=== PATIENT | female | born 1950 | race Caucasian/White ===

== ENCOUNTER → 2016-11-07 | Outpatient (CLI) | payer MEDICARE ==
--- NOTE | 2016-11-07 16:08 | BD ---
EXAMINATION TYPE: MG DEXA axial skeleton. DATE OF EXAM: 11/07/2016 11:52 AM CLINICAL HISTORY: 66-year-old female history of breast cancer, postmenopausal screening Height: 67 Weight: 235 FRAX RISK QUESTIONS: Alcohol (3 or more units per day): no Family History (Parent hip fracture): no Glucocorticoids (More than 3mos): no (Ex: prednisone, prednisolone, methylprednisolone, dexamethasone, and hydrocortisone). History of Fracture in Adulthood: possibly toe, a long time ago Secondary Osteoporosis: 1. Type 1 Diabetes: no 2. Hyperthyroidism: no 3. Menopause before 45: no 4. Malnutrition: no 5. Chronic liver disease: no Rheumatoid Arthritis: no Current Tobacco Use: not now RISK FACTORS HISTORY OF: Family History of Osteoporosis: possibly sister & mother Drink Alcohol: very very very rarely Active: yes Diet low in dairy products/other sources of calcium: at least one serving a day; but lactose intoler ant Postmenopausal woman: yes Take estrogen and/or progesterone medications: no Lost more than 2 inches in height since high school: no Frequent falls: no Poor Health: no Hyperparathyroidism: no Adrenal Insufficiency: no MEDICATIONS: Prednisone or other steroids: no Thyroid Medications: no Osteoporosis Medications: no Additional Medications: Vit D Additional History: Breast CA about 3 years ago; took Femara for a year or more EXAM MEASUREMENTS: Bone mineral densitometry was performed using the Qt Software System. Bone mineral density as measured about the Lumbar spine is: ----- L1-L4(G/cm2): 1.069 T Score Values are as follows: ----- L2: -1.5 ----- L3: -0.6 ----- L4: -0.1 ----- L1-L4: -0.9 Bone mineral density has: Decreased -6.1% since study of: 02/08/2014 Bone mineral density about the R hip (g/cm2): 0.798 Bone mineral density about the L hip (g/cm2): 0.896 T Score values are as follows: -----R Neck: -1.7 -----L Neck: -1.0 -----R Intertrochanter: -1.5 -----L Intertrochanter: -1.6 Bone mineral density has: Decreased -1.6% since study of: 02/08/2014 IMPRESSION: Osteopenia as indicated by T score values in the lumbar spine and both hips. There is slightly increased risk of fracture and the patient may be considered for treatment. Re-Screen 2 to 5 years. NOTE: T-SCORE=SD OF THE YOUNG ADULT MEAN.
== END | disposition home or self-care (01) ==
LOC: RADBDWWP 10:06
PROVIDERS: ATTEND Internal Medicine
DX: C50.411 Malignant neoplasm of upper-outer quadrant of right female breast (principal); M85.852 Other specified disorders of bone density and structure, left thigh; M85.851 Other specified disorders of bone density and structure, right thigh; M85.88 Other specified disorders of bone density and structure, other site; Z79.890 Hormone replacement therapy
CPT/HCPCS: 77080

== ENCOUNTER 2017-12-31 12:45 | Emergency (ER) | payer MEDICARE ==
[2017-12-31 12:57] VITALS: RESP 18
--- NOTE | 2017-12-31 13:40 | ED ---
General Adult HPI - General Chief complaint: Arrhythmia/Palpitations Stated complaint: Palpitations Time Seen by Provider: 12/31/17 13:08 Source: patient, RN notes reviewed Mode of arrival: ambulatory Limitations: no limitations - History of Present Illness Initial comments: Patient is a pleasant 67-year-old female presenting to the emergency Department with palpitations. Symptoms have been going on for weeks but worse the past few days. Patient feels like her heart is skipping. No chest pain. No dyspnea. No history of similar symptoms previously. No known arrhythmia history. - Related Data Home Medications Medication Instructions Recorded Confirmed Aspirin EC [Ecotrin Low Dose] 81 mg PO DAILY PRN 12/31/17 12/31/17 Cholecalciferol [Vitamin D3] 1,000 unit PO DAILY 12/31/17 12/31/17 Allergies Allergy/AdvReac Type Severity Reaction Status Date / Time Penicillins Allergy Anaphylaxis Verified 12/31/17 13:22 Review of Systems ROS Statement: Those systems with pertinent positive or pertinent negative responses have been documented in the HPI. ROS Other: All systems not noted in ROS Statement are negative. Constitutional: Denies: fever Eyes: Denies: eye discharge ENT: Denies: ear pain Respiratory: Denies: cough Cardiovascular: Reports: palpitations. Denies: chest pain Endocrine: Denies: fatigue Gastrointestinal: Denies: abdominal pain Genitourinary: Denies: dysuria Musculoskeletal: Denies: back pain Skin: Denies: rash Neurological: Denies: headache Past Medical History Additional Past Medical History / Comment(s): breast cancer 2014 History of Any Multi-Drug Resistant Organisms: None Reported Past Surgical History: Cholecystectomy Additional Past Surgical History / Comment(s): right breast lumpectomy and radiation Past Psychological History: No Psychological Hx Reported Smoking Status: Former smoker Past Alcohol Use History: None Reported Past Drug Use History: None Reported General Exam Limitations: no limitations General appearance: alert, in no apparent distress Head exam: Present: atraumatic Eye exam: Present: normal appearance, PERRL ENT exam: Present: normal oropharynx Neck exam: Present: normal inspection Respiratory exam: Present: normal lung sounds bilaterally Cardiovascular Exam: Present: regular rate, other (PVCs present with palpation of the pulse and on the monitor that does produce patient's symptoms) GI/Abdominal exam: Present: soft. Absent: tenderness Extremities exam: Present: normal inspection. Absent: pedal edema, calf tenderness Neurological exam: Present: alert Psychiatric exam: Present: normal affect, normal mood Skin exam: Present: normal color Course Vital Signs 12/31/17 12/31/17 12:52 14:13 Temperature 98 F Pulse Rate 77 65 Respiratory 18 18 Rate Blood Pressure 188/81 157/72 O2 Sat by Pulse 97 98 Oximetry EKG Findings - EKG Comments: EKG Findings:: Sinus rhythm 77. PVC present. PA 140. QRS 92. QT 382. QTC 432. Normal axis. Normal QRS. No acute ST change. Medical Decision Making - Medical Decision Making Patient reevaluated and resting comfortably in bed. symptoms have resolved. Patient and family updated on results and need for follow-up. - Lab Data Result diagrams: 12/31/17 13:18 12/31/17 13:18 Lab Results 12/31/17 12/31/17 12/31/17 Range/Units 13:18 13:18 13:18 WBC 7.3 (3.8-10.6) k/uL RBC 4.35 (3.80-5.40) m/uL Hgb 13.7 (11.4-16.0) gm/dL Hct 40.2 (34.0-46.0) % MCV 92.3 (80.0-100.0) fL MCH 31.5 (25.0-35.0) pg MCHC 34.1 (31.0-37.0) g/dL RDW 13.8 (11.5-15.5) % Plt Count 276 (150-450) k/uL Neutrophils % 72 % Lymphocytes % 18 % Monocytes % 6 % Eosinophils % 1 % Basophils % 1 % Neutrophils # 5.2 (1.3-7.7) k/uL Lymphocytes # 1.3 (1.0-4.8) k/uL Monocytes # 0.4 (0-1.0) k/uL Eosinophils # 0.1 (0-0.7) k/uL Basophils # 0.0 (0-0.2) k/uL PT 9.9 (9.0-12.0) sec INR 1.0 (<1.2) APTT 22.4 (22.0-30.0) sec Sodium 143 (137-145) mmol/L Potassium 4.2 (3.5-5.1) mmol/L Chloride 105 (98-107) mmol/L Carbon Dioxide 25 (22-30) mmol/L Anion Gap 13 mmol/L BUN 14 (7-17) mg/dL Creatinine 0.60 (0.52-1.04) mg/dL Est GFR (CKD-EPI)AfAm >90 (>60 ml/min/1.73 sqM) Est GFR (CKD-EPI)NonAf >90 (>60 ml/min/1.73 sqM) Glucose 94 (74-99) mg/dL Calcium 9.2 (8.4-10.2) mg/dL Magnesium 1.9 (1.6-2.3) mg/dL Total Bilirubin 0.3 (0.2-1.3) mg/dL AST 24 (14-36) U/L ALT 40 (9-52) U/L Alkaline Phosphatase 102 (38-126) U/L Total Creatine Kinase (30-135) U/L CK-MB (CK-2) (0.0-2.4) ng/mL CK-MB (CK-2) Rel Index Troponin I (0.000-0.034) ng/mL Total Protein 7.0 (6.3-8.2) g/dL Albumin 4.2 (3.5-5.0) g/dL TSH 1.950 (0.465-4.680) mIU/L Free T4 1.40 (0.78-2.19) ng/dL Free T3 pg/mL 3.8 (2.8-5.3) pg/ml 12/31/17 Range/Units 13:55 WBC (3.8-10.6) k/uL RBC (3.80-5.40) m/uL Hgb (11.4-16.0) gm/dL Hct (34.0-46.0) % MCV (80.0-100.0) fL MCH (25.0-35.0) pg MCHC (31.0-37.0) g/dL RDW (11.5-15.5) % Plt Count (150-450) k/uL Neutrophils % % Lymphocytes % % Monocytes % % Eosinophils % % Basophils % % Neutrophils # (1.3-7.7) k/uL Lymphocytes # (1.0-4.8) k/uL Monocytes # (0-1.0) k/uL Eosinophils # (0-0.7) k/uL Basophils # (0-0.2) k/uL PT (9.0-12.0) sec INR (<1.2) APTT (22.0-30.0) sec Sodium (137-145) mmol/L Potassium (3.5-5.1) mmol/L Chloride (98-107) mmol/L Carbon Dioxide (22-30) mmol/L Anion Gap mmol/L BUN (7-17) mg/dL Creatinine (0.52-1.04) mg/dL Est GFR (CKD-EPI)AfAm (>60 ml/min/1.73 sqM) Est GFR (CKD-EPI)NonAf (>60 ml/min/1.73 sqM) Glucose (74-99) mg/dL Calcium (8.4-10.2) mg/dL Magnesium (1.6-2.3) mg/dL Total Bilirubin (0.2-1.3) mg/dL AST (14-36) U/L ALT (9-52) U/L Alkaline Phosphatase (38-126) U/L Total Creatine Kinase 90 (30-135) U/L CK-MB (CK-2) 1.9 (0.0-2.4) ng/mL CK-MB (CK-2) Rel Index 2.1 Troponin I <0.012 (0.000-0.034) ng/mL Total Protein (6.3-8.2) g/dL Albumin (3.5-5.0) g/dL TSH (0.465-4.680) mIU/L Free T4 (0.78-2.19) ng/dL Free T3 pg/mL (2.8-5.3) pg/ml - Radiology Data Radiology results: image reviewed (Chest x-ray shows no acute process) Disposition Clinical Impression: Palpitations Disposition: HOME SELF-CARE Condition: Stable Instructions: Palpitations (ED) Additional Instructions: Please follow-up with your primary care physician in the next day or 2 for recheck. Consider having Holter monitor and echo done. Return for increased heart rate, chest pain, difficulty breathing, worsening or change in symptoms, or any other concerns. Is patient prescribed a controlled substance at d/c from ED?: No Referrals: Cate Amador MD [Primary Care Provider] - 1-2 days Time of Disposition: 15:32
--- NOTE | 2017-12-31 14:14 | XR ---
EXAMINATION TYPE: XR chest 2V DATE OF EXAM: 12/31/2017 COMPARISON: Prior chest x-ray 09/17/2013 HISTORY: Dysrhythmia TECHNIQUE: Frontal and lateral views of the chest are obtained. FINDINGS: There is no focal air space opacity, pleural effusion, or pneumothorax seen. The cardiac silhouette size is at the upper limits of normal although patient is rotated which may accentuate the appearance. There are overlying cardiac leads. Suspect surgical clips over the lower right chest. T he osseous structures are intact. IMPRESSION: No acute cardiopulmonary process. Additional findings above.
[2017-12-31 14:19] LABS: Basophils % (A) 1 %; Eosinophils # (A) 0.1 k/uL (0-0.7); Eosinophils % (A) 1 %; HCT 40.2 % (34.0-46.0); HGB 13.7 gm/dL (11.4-16.0); Lymphocytes # (A) 1.3 k/uL (1.0-4.8); Lymphocytes % (A) 18 %; MCH 31.5 pg (25.0-35.0); MCHC 34.1 g/dL (31.0-37.0); MCV 92.3 fL (80.0-100.0); Mean Platelet Volume 7.3; Monocytes # (A) 0.4 k/uL (0-1.0); Monocytes % (A) 6 %; Neutrophils # (A) 5.2 k/uL (1.3-7.7); Neutrophils % (A) 72 %; Platelet Count 276 k/uL (150-450); RBC 4.35 m/uL (3.80-5.40); RDW 13.8 % (11.5-15.5); WBC 7.3 k/uL (3.8-10.6)
[2017-12-31 14:27] LABS: ALT 40 U/L (9-52); AST 24 U/L (14-36); Albumin 4.2 g/dL (3.5-5.0); Alkaline Phosphatase 102 U/L (38-126); Anion Gap 13 mmol/L; Blood Urea Nitrogen 14 mg/dL (7-17); Calcium 9.2 mg/dL (8.4-10.2); Carbon Dioxide 25 mmol/L (22-30); Chloride 105 mmol/L (98-107); Glucose 94 mg/dL (74-99); Magnesium 1.9 mg/dL (1.6-2.3); Partial Thromboplastin Time 22.4 sec (22.0-30.0); Potassium 4.2 mmol/L (3.5-5.1); Prothrombin Time 9.9 sec (9.0-12.0); Sodium 143 mmol/L (137-145); Total Bilirubin 0.3 mg/dL (0.2-1.3)
[2017-12-31 14:52] LABS: Creatine Kinase 90 U/L (30-135)
[2017-12-31 15:04] LABS: Creatine Kinase MB 1.9 ng/mL (0.0-2.4); Troponin I <0.012 ng/mL (0.000-0.034)
[2017-12-31 16:07] VITALS: BP 149/68; PULSE 64; TEMP 97.8
== END 2017-12-31 16:06 | disposition home or self-care (01) ==
LOC: EC 12:45
DX: I49.3 Ventricular premature depolarization (principal); Z87.891 Personal history of nicotine dependence; Z79.899 Other long term (current) drug therapy; Z88.0 Allergy status to penicillin; Z85.3 Personal history of malignant neoplasm of breast; Z92.3 Personal history of irradiation; Z98.890 Other specified postprocedural states
CPT/HCPCS: 36415; 71046; 80053; 82550; 82553; 83735; 84439; 84443; 84481; 84484; 85025; 85610; 85730; 93005; 99285

== ENCOUNTER 2024-06-22 10:38 | Emergency (ER) | payer MEDICARE ==
--- NOTE | 2024-06-22 11:27 | ED ---
Skin/Abscess/FB HPI - General Chief complaint: Skin/Abscess/Foreign Body Stated complaint: Right breast abscess Time Seen by Provider: 06/22/24 10:58 Source: patient, RN notes reviewed Mode of arrival: ambulatory Limitations: no limitations - History of Present Illness Initial comments: 73-year-old female presenting to the ER with right breast abscess x 2 days. Describes an itchy, red, lump in the right lateral aspect of right breast with white purulence. States she had a lumpectomy in this location 10 years ago. She gets yearly mammograms, her next to scheduled next month. Denies fevers, chills, nausea, vomiting. - Related Data Home Medications Medication Instructions Recorded Confirmed Aspirin EC [Ecotrin Low Dose] 81 mg PO DAILY PRN 12/31/17 12/31/17 Cholecalciferol [Vitamin D3] 1,000 unit PO DAILY 12/31/17 12/31/17 Previous Rx's Medication Instructions Recorded Cephalexin [Keflex] 500 mg PO Q6HR 7 Days #28 cap 06/22/24 Sulfamethox-Tmp 800-160Mg [Bactrim 1 each PO Q12HR 7 Days #14 tab 06/22/24 Ds] Allergies Allergy/AdvReac Type Severity Reaction Status Date / Time fluorescein Allergy Itching Verified 06/22/24 10:55 [From Fluoracaine] Penicillins Allergy Anaphylaxis Verified 12/31/17 13:22 proparacaine Allergy Itching Verified 06/22/24 10:55 [From Fluoracaine] Review of Systems ROS Statement: Those systems with pertinent positive or pertinent negative responses have been documented in the HPI. ROS Other: All systems not noted in ROS Statement are negative. Past Medical History Additional Past Medical History / Comment(s): breast cancer 2014 History of Any Multi-Drug Resistant Organisms: None Reported Past Surgical History: Cholecystectomy Additional Past Surgical History / Comment(s): right breast lumpectomy and radiation Past Psychological History: No Psychological Hx Reported Smoking Status: Never smoker Past Alcohol Use History: None Reported Past Drug Use History: None Reported General Exam Limitations: no limitations General appearance: alert, in no apparent distress Head exam: Present: atraumatic, normocephalic, normal inspection ENT exam: Present: normal exam, mucous membranes moist Respiratory exam: Present: normal lung sounds bilaterally. Absent: respiratory distress, wheezes, rales, rhonchi, stridor Cardiovascular Exam: Present: regular rate, normal rhythm, normal heart sounds. Absent: systolic murmur, diastolic murmur, rubs, gallop, clicks Neurological exam: Present: alert, oriented X3 Psychiatric exam: Present: normal affect, normal mood Skin exam: Present: warm, dry, intact, normal color, other (3 x 3 cm erythematous, indurated mass with white purulence in the center present lateral aspect right breast) Course Vital Signs 06/22/24 10:50 Temperature 98.7 F Pulse Rate 72 Respiratory 18 Rate Blood Pressure 152/78 O2 Sat by Pulse 98 Oximetry Medical Decision Making - Medical Decision Making Was pt. sent in by a medical professional or institution (, PA, SECURITY SYSTEMS MANAGER, urgent care, hospital, or long term...) When possible be specific @ -No Did you speak to anyone other than the patient for history (EMS, parent, family, police, friend...)? What history was obtained from this source @ -No Did you review nursing and triage notes (agree or disagree)? Why? @ -I reviewed and agree with nursing and triage notes Were old charts reviewed (outside hosp., previous admission, EMS record, old EKG, old radiological studies, urgent care reports/EKG's, long term records)? Report findings @ -No old charts were reviewed Differential Diagnosis (chest pain, altered mental status, abdominal pain women, abdominal pain men, vaginal bleeding, weakness, fever, dyspnea, syncope, headache, dizziness, GI bleed, back pain, seizure, CVA, palpatations, mental health, musculoskeletal)? @ -Abscess, cellulitis, carcinoma EKG interpreted by me (3pts min.). @ -None X-rays interpreted by me (1pt min.). @ -None done CT interpreted by me (1pt min.). @ -None done U/S interpreted by me (1pt. min.). @ -Ultrasound right breast reveals a large 2.8 cm area of echogenicity at 8 and 10:00 with dense posterior shadowing seen to correspond to fat necrosis calcification noted on 07-23-2023 mammogram. No clear abscess/fluid collection What testing was considered but not performed or refused? (CT, X-rays, U/S, labs)? Why? @ -None What meds were considered but not given or refused? Why? @ -None Did you discuss the management of the patient with other professionals (professionals i.e. DrVivian, PA, SECURITY SYSTEMS MANAGER, lab, RT, psych nurse, 7th grade social studies teacher, television station manager, teacher, equal opportunity officer, caseworker protective services)? Give summary @ -No Was smoking cessation discussed for >3mins.? @ -No Was critical care preformed (if so, how long)? @ -No Were there social determinants of health that impacted care today? How? (Homelessness, low income, unemployed, alcoholism, drug addiction, transportation, low edu. Level, literacy, decrease access to med. care, [facility], rehab)? @ -No Was there de-escalation of care discussed even if they declined (Discuss DNR or withdrawal of care, Hospice)? DNR status @ -No What co-morbidities impacted this encounter? (DM, HTN, Smoking, COPD, CAD, Cancer, CVA, ARF, Chemo, Hep., AIDS, mental health diagnosis, sleep apnea, morbid obesity)? @ -None Was patient admitted / discharged? Hospital course, mention meds given and route, prescriptions, significant lab abnormalities, going to OR and other pertinent info. @ -Discharge. This is a 73-year-old female presenting with right breast abscess x 2 days. Patient had lumpectomy 10 years ago at same location. No systemic or red flag symptoms. Physical examination remarkable for indurated erythematous mass on right lateral breast with white purulent drainage. Ultrasound right breast reveals large 2.8 cm area of echogenicity at 8 and 10:00 with dense posterior shadowing seem to correspond to fat necrosis calcification noted 07-23-2023 mammogram, no clear abscess or fluid collection. Discussed results with patient. Will treat with antibiotics and advised close follow-up with [facility] surgeon. Appropriate return precautions and supportive care discussed. Case was discussed with my ED attending Dr. Potter. Undiagnosed new problem with uncertain prognosis? @ -No Drug Therapy requiring intensive monitoring for toxicity (Heparin, Nitro, Insulin, Cardizem)? @ -No Were any procedures done? @ -No Diagnosis/symptom? @ -Cellulitis right breast Acute, or Chronic, or Acute on Chronic? @ -Acute Uncomplicated (without systemic symptoms) or Complicated (systemic symptoms)? @ -Uncomplicated Side effects of treatment? @ -No Exacerbation, Progression, or Severe Exacerbation? @ -No Poses a threat to life or bodily function? How? (Chest pain, [place], [place], pneumonia, PE, COPD, DKA, ARF, appy, cholecystitis, CVA, Diverticulitis, Homicidal, Suicidal, threat to staff... and all critical care pts) @ -No Disposition Clinical Impression: Cellulitis of right breast Disposition: HOME SELF-CARE Condition: Stable Instructions (If sedation given, give patient instructions): Cellulitis (ED) Additional Instructions: Take Keflex and Bactrim as prescribed. Follow-up with breast surgeon as discussed. Please return to the Emergency Department if symptoms worsen or any other concerns. Prescriptions: Sulfamethox-Tmp 800-160Mg [Bactrim Ds] 1 each PO Q12HR 7 Days #14 tab Cephalexin [Keflex] 500 mg PO Q6HR 7 Days #28 cap Is patient prescribed a controlled substance at d/c from ED?: No Referrals: Cate Amador MD [Primary Care Provider] - 1-2 days Time of Disposition: 13:01
--- NOTE | 2024-06-22 12:38 | USB ---
Reason for Exam: Clinical finding. Patient History: Menarche at age 12. First Full-Term at age 21. Postmenopausal. Breast cancer, age 63. 09/22/2013, Bilateral Malignant Excisional Biopsy. 09/09/2013, Malignant Core Biopsy on the right side. Maternal cousin had breast cancer, age 50. Prior Study Comparison: 08/26/2013 Bilateral Diagnostic Mammogram, [facility]. 09/09/2013 Right Diagnostic Mammogram, [facility]. Findings: The lateral section of the breast of the right breast, the axilla of the right breast and the retroareolar of the right breast were scanned. Targeted ultrasound along the lateral aspect of the right breast 6:00 to 11:00 including scanning of the subareolar region and axilla. At the 9 and 10:00 position, 2 cm from the nipple, there is focal echogenicity with associated dense posterior shadowing measuring 2.8 x 2.7 x 2.8 cm. Though this corresponds to the site of patient's wound and drainage, we note a large area of fat necrosis calcification on the patient's outside 07/23/2023 mammogram. Overall Assessment: Incomplete: need additional imaging evaluation, BI-RAD 0 Management: Diagnostic Mammogram of both breasts. Large 2.8 cm area of echogenicity at 9 and 10:00 with dense posterior shadowing seems to correspond to fat necrosis calcification noted on the patient's outside 07/23/2023 mammogram. The manager sap notes a wound with drainage in this same location. Ultrasound does not identify any clear abscess/fluid collection. [facility], , 06/22/2024 12:35 PM. Electronically signed and approved by: Reba Castorena M.D. Radiologist
[2024-06-22 13:10] VITALS: BP 146/81; PULSE 65; RESP 16; TEMP 98.2
== END 2024-06-22 13:11 | disposition home or self-care (01) ==
LOC: EC 10:38
DX: N61.0 Mastitis without abscess (principal); Z88.0 Allergy status to penicillin; Z88.8 Allergy status to other drugs, medicaments and biological substances; Z88.1 Allergy status to other antibiotic agents; Z88.2 Allergy status to sulfonamides
CPT/HCPCS: 99283

== ENCOUNTER → 2024-07-10 | Outpatient (CLI) | payer MEDICARE ==
--- NOTE | 2024-07-10 11:51 | MM ---
Reason for Exam: Clinical finding. Last screening mammogram was performed 12 month(s) ago. Indicated Problems: Other indicated problem of the right side for 2 Month(s) : open wound with drainage. Patient History: Menarche at age 12. First Full-Term at age 21. Postmenopausal. Patient has history of breast feeding. Breast cancer, right, age 63. 09/22/2013, Bilateral Malignant Excisional Biopsy. 09/09/2013, Malignant Core Biopsy on the right side. Maternal cousin had breast cancer, age 50. Prior Study Comparison: 08/26/2013 Bilateral Diagnostic Mammogram, [facility]. 09/09/2013 Right Diagnostic Mammogram, [facility]. 07/12/2021 Bilateral Diagnostic Mammogram, [facility]. 07/18/2022 Bilateral Diagnostic Mammogram, [facility]. 07/23/2023 Bilateral Diagnostic Mammogram, [facility]. Tissue Density: There are scattered areas of fibroglandular density. Findings: Analyzed By CAD. The pattern is stable. There is a large coarse calcification or distortion within the right breast. Surgical clips from prior lumpectomy are present. Findings are stable from 07/23/2023. No suspicious groups of microcalcifications, spiculated or lobular masses, architectural distortion or other secondary signs of malignancy are mammographically apparent. Overall Assessment: Benign, BI-RAD 2 Management: Screening Mammogram of both breasts in 1 year. A negative mammogram report should not preclude additional follow up of suspicious palpable abnormalities. Patient should continue monthly self breast exam. A clinical breast exam by your physician is recommended on an annual basis and results should be correlated with mammographic findings. Note on Mary scores and lifetime risk: 1. A Mary score greater than 3% is considered moderate risk. If this is the case, consider specialist referral to assess eligibility for a risk reducing agent. 2. If overall lifetime risk for the development of breast cancer is 20% or higher, the patient may qualify for future screening with alternating mammogram and breast MRI. [facility], , 07/10/2024 11:47 AM. Electronically signed and approved by: Michael Moctezuma D.O. Radiologis
== END | disposition home or self-care (01) ==
LOC: RADMAMWWP 10:09
PROVIDERS: ATTEND Surgery
DX: N63.0 Unspecified lump in unspecified breast (principal); Z78.0 Asymptomatic menopausal state; Z85.3 Personal history of malignant neoplasm of breast; Z80.3 Family history of malignant neoplasm of breast; R92.323 Mammographic fibroglandular density, bilateral breasts
CPT/HCPCS: 77066; G0279; 77062

== ENCOUNTER → 2024-07-14 | Day surgery (SDC) | payer MEDICARE ==
--- NOTE | 2024-07-20 10:18 | MM ---
Reason for Exam: Post Procedure Mammogram. Last screening mammogram was performed less than 1 month ago. Patient History: Menarche at age 12. First Full-Term at age 21. Postmenopausal. Patient has history of breast feeding. Breast cancer, right, age 63. 09/22/2013, Bilateral Malignant Excisional Biopsy. 09/09/2013, Malignant Core Biopsy on the right side. Maternal cousin had breast cancer, age 50. Prior Study Comparison: 07/18/2022 Bilateral Diagnostic Mammogram, [facility]. 07/23/2023 Bilateral Diagnostic Mammogram, [facility]. 07/10/2024 Bilateral MG 3D diag mammo w/cad MELISSA, [facility]. Tissue Density: Right: There are scattered areas of fibroglandular density. Pathology Description: Location: 10 o'clock. Marker Left Behind. Needle Type: Celero Cores: 4 Gauge: 12 The procedure of ultrasound guided core biopsy was explained to the patient. Benefits, alternatives, and risks were discussed. An informed consent was then obtained. The patient was placed in supine positioning for imaging and for the procedure. The overlying skin was prepped and draped in usual sterile fashion. Lidocaine buffered with bicarbonate was used as anesthetic into the skin and subcutaneous tissue up to area of concern in the right 10:00 breast. Under ultrasound guidance, a 12-gauge vacuum assisted biopsy gun device was used to obtain 4 core samples. Following this, a biopsy clip was left in lesion. The patient tolerated the procedure well without any immediate complication. The patient was kept in the radiology department for short stay after the procedure and then discharged home in stable condition. Postprocedure mammogram: The patient was transferred to mammography for physician ordered post procedure mammogram for clip placement verification. Post procedure mammogram demonstrates the clip in appropriate placement. Impression: Successful, uncomplicated ultrasound guided core biopsy of area of concern in the right 10:00 breast, full pathology results to follow. [facility], , 07/14/2024 12:47 PM. Pathology Results: Result: Benign, Fat necrosis. Pathology and radiology were reviewed. Findings are concordant. RIGHT BREAST, 10:00 2 CM FROM NIPPLE, ULTRASOUND GUIDED CORE BIOPSY: Fibrous scar with fat necrosis, microcalcification, acute and chronic mastritis and focal fibrocystic change. Negative for malignancy. Overall Assessment: Benign Assessment: MG diagnostic mammo RT wo CAD - Right: Benign, BI-RAD 2. Management: Diagnostic Breast Ultrasound of the right breast in 6 months. Electronically signed and approved by: Oneal Sparrow M.D. Radiologis
== END ==
LOC: RADUSWWP 09:44
PROVIDERS: ATTEND Surgery
DX: N61.0 Mastitis without abscess (principal); N64.1 Fat necrosis of breast; L90.5 Scar conditions and fibrosis of skin; R92.8 Other abnormal and inconclusive findings on diagnostic imaging of breast; Z78.0 Asymptomatic menopausal state
CPT/HCPCS: 88305; 77065; 19083; A4648

== ENCOUNTER → 2024-11-13 | Day surgery (SDC) | payer MEDICARE ==
[2024-11-11 12:36] VITALS: BMI 33.7
[~2024-11-13] MED LIST: KETOROLAC 15 MG/ML 1 ML VIAL ONE; LIDOCAINE 1% INJ 10MG/ML (20 ML MDV) ONE; MIDAZOLAM 2 MG/2 ML VIAL IV PRN; MIDAZOLAM 2 MG/2 ML VIAL ONE; NALOXONE 0.4 MG/ML 1 ML VIAL IV PRN; PROPOFOL 10 MG/ML 20 ML VIAL IV ONE; Pre Op ABX Message 1 EACH MISC MISCELLANE ONE; fentaNYL (PF) 50 MCG/ML 2 ML AMP ONE; traMADol 50 MG TAB PO PRN
[2024-11-13] MEDS: ONDANSETRON 4 MG/2 ML VIAL IVP ONE (07:22)
[2024-11-13] MEDS: ACETAMINOPHEN TAB 500 MG TAB PO PRN (07:22)
[2024-11-13] MEDS: DEXAMETHASONE SOD PHOSPHATE 4 MG/ML 1 ML VIAL IV ONE (07:22)
[2024-11-13] MEDS: HEPARIN SODIUM,PORCINE 5,000 UNIT/ML 1 ML VIAL SQ PRN (07:23)
[2024-11-13] MEDS: LACTATED RINGERS 1,000 ML IV SCH (07:24)
[2024-11-13] MEDS: LACTATED RINGERS 1,000 ML IV ONE (07:24)
[2024-11-13] MEDS: ceFAZolin 1,000 MG VIAL IVPB ONE (07:30)
[2024-11-13] MEDS: BUPIVACAINE (PF) 0.25% 30 ML VIAL SQ ONE ×3 (07:43→08:15)
[2024-11-13] MEDS: BACITRACIN ZINC 500 UNIT/GM OINT 28.4 GM TUBE TOPICAL ONE (08:18)
[2024-11-13 08:42] VITALS: TEMP 97.8
--- NOTE | 2024-11-13 08:58 | P.OP ---
Date of Procedure: 11/13/24 Procedure(s) Performed: PREOPERATIVE DIAGNOSIS: Right breast mass with wound POSTOPERATIVE DIAGNOSIS: Same PROCEDURE: Excisional biopsy right breast mass SURGEON: Robert EBL: 25 cc ANESTHESIA: General plus local COMPLICATIONS: None OPERATIVE PROCEDURE: Patient was placed on the operating room table in the lyles pine position. The patient's breast was prepped and draped in usual sterile fashion. The patient had a 2 to 3 mm open sinus draining wound at the 8 o'clock position approximately 5 to 10 mm from the areola border. The patient had significant dimpling and scarring here from her previous lumpectomy and radiation treatments. I probed the sinus opening and it did travel into the breast tissue approximately 3 cm directed superiorly and medially. An elliptical incision was made encompassing the area of scar tissue and dimpling of the scar along with the wound. The subcutaneous tissues were dissected and the previous scar that was calcified in many areas was excised. A deep culture was taken. Where this deep culture was taken we did excise that tissue as well as it appeared thickened and scarred. A 10 [place] MARIA R drain was brought into the operative site and exited along the breast fold inferior and laterally. The subcutaneous tissues were thoroughly irrigated with saline. The subcutaneous layer was then closed using interrupted 2-0 and 3-0 Vicryl sutures. Skin was closed using a running 4-0 nylon stitch. MARIA R drain was sutured in place using a 4-0 nylon stitch. Bacitracin and sterile dressings applied. DISPOSITION: Stable to recovery room
[2024-11-13] MEDS: HYDROmorphone 0.5 MG/0.5 ML SYRINGE IVP PRN (09:04)
[2024-11-13 09:28] VITALS: RESP 16
[2024-11-13 10:26] VITALS: BP 135/79; PULSE 62
== END ==
LOC: OR 06:23
PROVIDERS: ATTEND Surgery
DX: N61.1 Abscess of the breast and nipple (principal); N60.11 Diffuse cystic mastopathy of right breast; Z79.2 Long term (current) use of antibiotics; Z85.3 Personal history of malignant neoplasm of breast; Z92.3 Personal history of irradiation; Z88.0 Allergy status to penicillin; Z88.8 Allergy status to other drugs, medicaments and biological substances
CPT/HCPCS: 19120; 88305; 87070; 87205; 87075; J2250; J1644; J1100; J2405; J0690; J2003; J3010; J1885; J2704; J1171; J0665